=== PATIENT | male | born 1965 | race Caucasian/White ===

== ENCOUNTER 2020-08-21 09:09 | Outpatient (CLI) | payer OTHER, SELFPAY ==
--- NOTE | 2020-08-21 09:15 | XR_ITS ---
WS: [id number] Exam: XR KUB [id number] Date/Time of Exam: 08/21/2020 9:21 AM Reason For Exam: RENAL STONE Comparison 08/19/2018. Subcentimeter tiny calcifications superimpose both renal silhouettes and are most likely renal calcul i. No bowel obstruction or free air. Visualized organ margins are otherwise intact. Mild dextroscolio sis of the L-spine. Several tiny nonspecific pelvic calcifications are noted. XR/XR KUB [id number] IMPRESSION: 1. Tiny calcifications superimposing both kidneys most likely renal calculi. 2. No acute abdominal process.
== END 2020-08-21 09:10 | disposition home or self-care (01) ==
LOC: RAD 09:16
PROVIDERS: PCP Internal Medicine; Visit Provider Urology
DX: N20.0 Calculus of kidney (principal)
CPT/HCPCS: 74018; 81003

== ENCOUNTER 2020-10-27 07:58 | Outpatient (CLI) | payer OTHER, SELFPAY ==
[2020-10-27] MEDS: iohexol 300 mg/mL 50 mL Btl IV (09:09)
--- NOTE | 2020-10-27 09:30 | CT_ITS ---
WS: [id number] CT scan of the abdomen and pelvis with Oral and IV contrast. Additional two-dimensional coronal and s agittal reconstruction was performed. 10/27/2020 Clinical Data: K43.9 - Ventral hernia without obstruction or gangrene Comparison: CT abdomen and pelvis, 04/22/2014. DLP: 1321.[address] scans at [facility] use at least one of these dose optimization techniques: automat ed exposure control; mA and/or kV adjustment per patient size (includes targeted exams where dose is matched to clinical indication); or iterative reconstruction. Findings: The lower lungs show no nodules, masses or effusions. The liver, gallbladder, spleen, adrenal glands and pancreas are normal. The kidneys show equal bilateral contrast excretion with with with single small nonobstructing renal calculi. There is also a 0.6 cm right renal cyst. No masses or hydronephrosis are seen. No hydrourete r is present. The abdominal aorta is normal in size with minimal calcification in the wall. No appendicitis or diverticulitis is seen. Oral contrast is in the stomach and small bowel and there is no bowel dilatation. No abscess, adenopathy, ascites, mass, obstruction or free air is seen. The bladder is unremarkable. No inguinal hernia is seen. The marker on the left side of the abdomen d emonstrates no ventral hernia. The prostate is enlarged with minimal calcification. The bones of the lower thorax, lumbar spine, pelvis, and hips show degenerative change of the lower t horacic and lumbar vertebral bodies with disc space narrowing at L4-L5 and L5-S1. CT/CT abdomen pelvis w con* [id number] Impression: 1. Negative for acute intra-abdominal or pelvic abnormalities. 2. Negative for ventral hernia or abnormality on the left side of the abdomen. Negative CT scan of the abdomen and pelvis.
[2020-10-27] MEDS: iohexol 300 mg/mL 100 mL Btl IV (09:39)
== END 2020-10-27 07:59 | disposition home or self-care (01) ==
LOC: RADWPI 08:16
PROVIDERS: PCP Internal Medicine; Visit Provider Surgery
DX: K43.9 Ventral hernia without obstruction or gangrene (principal)
CPT/HCPCS: 74177; Q9967

== ENCOUNTER → 2022-07-28 15:52 | Outpatient (BNVA) | payer OTHER, SELFPAY | PROVIDERS: PCP Internal Medicine; Visit Provider Emergency Medicine | DX: M54.9 Dorsalgia, unspecified (principal) | CPT/HCPCS: 81000 ==

== ENCOUNTER 2022-07-31 16:17 | Outpatient (CLI) | payer OTHER, SELFPAY ==
--- NOTE | 2022-07-31 17:00 | CT_ITS ---
WS: [id number] CT ABDOMEN PELVIS TECHNIQUE: Noncontrast CT of the abdomen and pelvis with coronal and sagittal reformatted images. CLINICAL INFORMATION: left back pain COMPARISON: CT October 27, 2020 DLP: 797.[address] scans at [facility] use at least one of these dose optimization techniques: automated e xposure control; mA and/or kV adjustment per patient size (includes targeted exams where dose is matc hed to clinical indication); or iterative reconstruction. FINDINGS: Lung bases are well aerated. Calcified granulomas LEFT lower lobe. Tiny subpleural nodule LEFT lower lobe measuring 3.5 mm. Adrenal glands are normal. No hydronephrosis in either kidney. No obstructing LEFT renal or ureteral calculi. No obstructing RIGHT renal or ureteral calculi. A few nonobstructing calyceal tip calculi bilaterally. Normal GE junction. A few splenic granulomas. Noncontrast liver is normal. Normal noncontrast gallbladder. Noncontrast pancreas is normal. Normal caliber abdominal aort a. Mild aortic calcification. Normal sigmoid colon. Enlarged prostate with calcification measuring 4.9 CM. Tiny fat-containing umbi lical hernia. Small Fat-containing hernias bilaterally. Disc space narrowing worse L4-L5 and L5-S1. CT/CT kidney stone [id number] IMPRESSION: 1. No hydronephrosis in either kidney. No obstructing renal or ureteral calcul i. 2. A few tiny nonobstructing calyceal tip calculi. 3. Normal caliber abdominal aorta. 4. Noncalcified subpleural nodule LEFT lower lobe measuring 3.5 mm. Recommend 12 month follow-up chest CT. 5. Enlarged prostate measuring 4.9 CM. Recommend correlation PSA. 6. No other remarkable findings.
== END 2022-07-31 16:18 | disposition home or self-care (01) ==
LOC: RAD 16:21
PROVIDERS: PCP Internal Medicine; Visit Provider Emergency Medicine
DX: R10.9 Unspecified abdominal pain (principal); R91.1 Solitary pulmonary nodule; N40.0 Benign prostatic hyperplasia without lower urinary tract symptoms
CPT/HCPCS: 74176

== ENCOUNTER 2022-08-22 09:45 | Outpatient (CLI) | payer OTHER, SELFPAY ==
--- NOTE | 2022-08-22 09:47 | XR_ITS ---
WS: [id number] Exam: XR KUB [id number] Date/Time of Exam: 08/22/2022 9:50 AM Reason For Exam: Renal Stone Comparison 08/21/2020. Tiny calcifications superimpose both kidneys and apparently represent known renal stones. No bowel ob struction or free air. No sign of organ enlargement. Moderate amount stool in the colon. Nonspecific right pelvic calcifications are noted. Degenerative changes of the lower lumbar spine. DJD of both hi ps. XR/XR KUB [id number] IMPRESSION: 1. No acute abdominal finding. 2. Small calcification superimpose both kidneys and apparently represent known renal stones.
== END 2022-08-22 09:46 | disposition home or self-care (01) ==
PROVIDERS: PCP Internal Medicine; Visit Provider Urology
DX: N20.0 Calculus of kidney (principal)
CPT/HCPCS: 74018; 81003